=== PATIENT | female | born 1990 ===

== ENCOUNTER 2017-10-09 06:24 | Day surgery (SDC) | payer OTHER ==
[2017-10-09 06:35] VITALS: BMI 19.1
[2017-10-09] MEDS ORDERED: ceFAZolin IV 1 gm in Dextrose 0 GM/0 ML BAG IVPB ONE (07:10)
[2017-10-09] MEDS ORDERED: Propofol 10 mg/ml Inj (20 ML) ONE (07:23)
[2017-10-09] MEDS ORDERED: Lidocaine 4% (Laryng-O-Jet) Kit MM ONE (07:24)
[2017-10-09] MEDS ORDERED: Midazolam 2 MG/2 ML VIAL ONE (07:24)
[2017-10-09] MEDS ORDERED: Rocuronium 10 mg/ml (5 ml) ONE (07:24)
[2017-10-09] MEDS ORDERED: Succinylcholine 200 mg/10 ml Inj IV ONE (07:24)
[2017-10-09] MEDS ORDERED: Lactated Ringer's 1,000 ML IV ONE ×2 (07:25→08:00)
[2017-10-09 07:39] VITALS: RESP 18; O2SAT 100
[2017-10-09 07:42] LABS: HEMATOCRIT 39.3 % (34.0-47.0); MEAN CELL VOLUME 79.4 fl (81.0-99.0); MEAN CORPUSCULAR HEMOGLOBIN 25.9 pg (27.0-31.0); MEAN CORPUSCULAR HGB CONC 32.6 g/dL (33.0-37.0); RED CELL DISTRIBUTION WIDTH 13.2 % (11.5-14.5); WHITE BLOOD COUNT 10.5 K/uL (4.8-10.8)
[2017-10-09] MEDS ORDERED: Bupivacaine-Epi 0.5%-1:200,000 PF Inj IJ ONE (08:15)
[2017-10-09] MEDS ORDERED: Dexamethasone 4 mg/1 ml ONE (08:34)
[2017-10-09] MEDS ORDERED: Neostigmine Methylsulfate 3mg/3ml Syringe IV ONE (08:35)
[2017-10-09] MEDS ORDERED: Neostigmine Methylsulfate 2 MG/2 ML ML IV ONE (08:35)
--- NOTE | 2017-10-09 09:06 | PCM.SURG1 ---
Surgeon's Initial Post Op Note - Surgeon's Notes Surgeon: Leslie Ortiz MD / Tarun Foreman MD Raveler: Tarun Foreman MD Type of Anesthesia: General Endo, None Anesthesia Administered By: Nancy Fagan DO Pre-Operative Diagnosis: Chronic pelvic pain. Endometriosis Operative Findings: Stage 1 endometriosis. Interstitial cystitis. S/P BTL. Normal tubes and ovaries. Uterus antevereted normal appearing. Bladder hyperemic hypervascular. hunner lessions Post-Operative Diagnosis: Chronic pelvic pain. Endometriosis. Interstitial cystitis Operation Performed: laparoscopic pelvic exploration / Endometriossis surgery. Cystoscopy Specimen/Specimens Removed: none Estimated Blood Loss: EBL {In ML}: 5 Blood Products Given: N/A Drains Used: No Drains Post-Op Condition: Good Date of Surgery/Procedure: 10/09/17 Time of Surgery/Procedure: 09:08
[2017-10-09] MEDS ORDERED: Lactated Ringer's 1,000 ML IV SCH (09:15)
--- NOTE | 2017-10-09 09:18 | PCM.OP ---
Operative Report - Operative Report Date of Surgery/Procedure: 10/09/17 Time of Surgery/Procedure: 09:10 Surgeon: Leslie Ortiz MD / Tarun Foreman MD Anesthesia/Sedation: General with ET tube Pre-Operative Diagnosis: Chronic pelvic pain Post-Operative Diagnosis: chronic pelvic pain. Endometriosis mild. Interstitial cystitis Indication for Surgery: Worsening pelvic pain, failed cconservative management for several years, severe dysparunia Operative Findings: mild superficial endometriosis white lessions on anterior abdominal wall. S/P BTL, uterus anteverted bulky, ovaries and tubes normal appearing, posterior culdesac normal apperaring, bladder anatomy with mild hunner like lessions on anterior wall near dome, ureters efluxing urine freely, urethra normal . Exma under anesthesia showed enlarged uterus, some degree of uterine prolaps and vaginal relaxtion, no external lessions noted. Procedure/Operation Description: Laparoscopy. Cystoscopy. Detailed operative report. Pt is a 27 y/o [place] female with chronic pelvic pain, worsening in severity over several years. pt has faield conservative managment including long use of NSAIDS and other pain medicatinos. pt is reporting severe dysparunia. pt is s/p 4 with large deliveries and BTL. Long discussion about surgical management completed and decision was made to proceed with laparoscopic robotic assisted proceddure to address possible endometriosis. Although the patient underwent BTL in the past, she expressed possible desire for future pregnancies possible via BTL reversal or IVF. Future fertility was a desire possiblely. following a proper consent, she was taken to the OR, placed in dorasl ligthotomy position, legs placed in adjustable position, carefull attention placed to avoid hyperflexion or hyperrotation of the lower extermities. She was prepped and draped for a robotic procedure. Paulson catheter placed under stable condition. Exma under anesthesia showed enlarged uterus, some degree of uterine prolaps and vaginal relaxtion, no external lessions noted. while tenting the ambilical wall, a veres needle was inserted and pneumoperitinum was obtained. A 8 mm incision was made into the periumbilical fold, a laparoscopic camera was inserted and a complete abdominal and pelvic survery was made. Additional 5 mm laparoscopic port was inserted on the patient left side approx 3 cm superionr to the superior iliac crest. Mild superficial endometriosis white lessions noted on anterior abdominal wall. S/P BTL, uterus anteverted bulky, ovaries and tubes normal appearing, posterior culdesac normal apperaring, liver and spleed appeared normal. Bladder anatomy with mild hunner like lessions on anterior wall near dome, ureters efluxing urine freely, urethra normal . All instrumets were removed under direct visualization, pneumoperitonuem was reduced and incisions closed with 4-0 monocryl and dermabond. Cystoscopy was completed. 30 degree cystocope was inserted and the bladder was filled to approx 350 cc of NS. The dome, trigone and urethra appeared normal. ureters were efluxing urine freely, small hunner lessions near the dome of the bladder noted. hypervascular mucosal apprearance noted. The paulson was reinserted and pt was awaken and take to recovery in stable condition. prior to incision, pt received antibiotics prior to closure sponge lap and needle count were correct times 2. Estimated Blood Loss: 5ml Blood Replaced: none Sponge/Instrument Count: correct times 2 Drains: none Complications: none Discharge & Condition: stable condition discharge same day surgery with criteria met.
[2017-10-09] MEDS ORDERED: Oxycodone/Acetaminophen 5/325 mg Tab PO PRN (09:46)
[2017-10-09] MEDS ORDERED: Oxycodone/Acetaminophen 5/325 mg Tab PO ONE (11:55)
[2017-10-09 12:25] VITALS: TEMP 97.5
[2017-10-09 13:33] VITALS: BP 105/66; PULSE 79
== END 2017-10-09 13:41 | disposition home or self-care (01) ==
LOC: H.OPSURG 06:24
PROVIDERS: ATTEND Obstetrics & Gynecology
DX: N80.9 Endometriosis, unspecified (principal); G89.29 Other chronic pain; N30.10 Interstitial cystitis (chronic) without hematuria; R10.2 Pelvic and perineal pain; N81.4 Uterovaginal prolapse, unspecified
CPT/HCPCS: 36415; 49320; 52000; 85027; 86850; 86900; C2615; J0330; J1100; J1885; J2001; J2250; J2405; J2704; J2710; J3010; J7040; J7120; S2900